=== PATIENT | male | born 1955 | race Caucasian/White ===

== ENCOUNTER 2022-02-08 09:34 | Inpatient (IN) | payer MEDICARE, OTHER ==
[~2022-02-08] VITALS: Ht 188 cm; Wt 99.8 kg
[~2022-02-08 09:34] MED LIST: ASPIRIN81 MG PO; FINASTERIDE5 MG PO; FISH OIL 1,0001 EAC2 PO; FLOMAX0.4 MG PO; SYNJARDY XR 251 EACH PO; VITAMIN D3 COM1 EACH PO
[2022-02-08] MEDS ORDERED: GENTAMICIN 80MG/NS 100 ML 200 ML IV ONE (10:21)
[2022-02-08] MEDS ORDERED: CEFTRIAXONE 1 GM VIAL ONE (10:21)
[2022-02-08] MEDS ORDERED: SODIUM CHLORIDE 0.9% 1000ML 1,000 ML ONE (10:21)
[2022-02-08] MEDS ORDERED: IOPAMIDOL 610MG/1ML 300 MG/ML VIAL IV ONE (11:42)
[2022-02-08] MEDS ORDERED: B&O 60MG R/S 60 MG SUPP PR ONE (11:42)
[2022-02-08] MEDS ORDERED: SEVOFLURANE INHAL SOLN 250 ML PEN BTL ONE (12:05)
[2022-02-08] MEDS ORDERED: LIDOCAINE HCL 2% LOCAL INJ 5 ML SDV VIAL INJ ONE (12:05)
[2022-02-08] MEDS ORDERED: PROPOFOL IV EMULSION 10 MG/ML 20 ML VIAL ONE (12:05)
[2022-02-08] MEDS ORDERED: POVIDONE IODINE 0.05% 0.05 % ML PO ONE (12:05)
[2022-02-08] MEDS ORDERED: DEXAMETHASONE SOD PHOS INJ 4 MG/ML SDV ONE (12:05)
[2022-02-08] MEDS ORDERED: ATROPINE SULFATE 1 MG/ML VIAL ONE (12:05)
[2022-02-08] MEDS ORDERED: ONDANSETRON HCL INJ 2MG/ML 2ML 2 MG/ML VIAL ONE (12:05)
[2022-02-08] MEDS ORDERED: MIDAZOLAM HCL 2 MG/2 ML VIAL ONE (12:47)
[2022-02-08] MEDS ORDERED: FENTANYL CITRATE/PF 100MCG/2 ML INJ ONE ×2 (12:47→13:28)
[2022-02-08] MEDS ORDERED: DIPHENHYDRAMINE HCL 25 MG CAP PO PRN (13:30)
[2022-02-08] MEDS ORDERED: ONDANSETRON HCL INJ 2MG/ML 2ML 2 MG/ML VIAL IV PRN (13:30)
[2022-02-08] MEDS ORDERED: B&O 60MG R/S 60 MG SUPP PR PRN (13:30)
[2022-02-08 13:43] LABS: BASOPHILS % 0.4 % (0.0-1.0); EOSINOPHILS % 0.6 % (0.0-6.0); HEMATOCRIT 47.8 % (38.2-49.6); HEMOGLOBIN 15.8 g/dL (14.0-18.0); LYMPHOCYTES % 14.3 % (18.0-39.1); MEAN CORPUSCULAR HGB CONC 33.1 g/dL (31-35); MEAN CORPUSCULAR VOLUME 90.9 fL (81-99); MONOCYTES # (AUTO) 0.3 (0.2-0.8); MONOCYTES % 4.9 % (4.4-11.3); NEUTROPHILS # (AUTO) 5.6 (2.1-6.9); NEUTROPHILS % 79.4 % (38.7-80.0); PLATELET COUNT 142 x10e3/uL (140-360); RED BLOOD COUNT 5.26 x10e6/uL (4.3-5.7); RED CELL DISTRIBUTION WIDTH 13.1 % (11.7-14.4)
[2022-02-08 13:59] LABS: ANION GAP 13.2 mmol/L (8-16); CALCIUM 8.3 mg/dL (8.4-10.2); CREATININE, SERUM 1.12 mg/dL (0.72-1.25); POTASSIUM 5.2 mmol/L (3.5-5.1)
[2022-02-08] MEDS ORDERED: Morphine 2mg Syringe 2 MG/ML SYR ONE (14:06)
[2022-02-08 16:02] VITALS: BP 134/77
[2022-02-08 16:03] VITALS: BP 134/77
[2022-02-08 16:06] VITALS: BP 134/77
[2022-02-08] MEDS: PHENAZOPYRIDINE HCL 100 MG TAB PO PRN (16:57)
[2022-02-08] MEDS: DOCUSATE SODIUM 100 MG CAP PO SCH (16:57)
[2022-02-08] MEDS: SODIUM CHLORIDE 0.9% 1000ML 1,000 ML IV SCH (16:57)
[2022-02-08 20:00] VITALS: BP 116/68
[2022-02-08] MEDS: ACETAMINOPHEN/CODEINE 300MG - 30MG TAB PO PRN (22:04)
[2022-02-08 22:42] VITALS: BP 116/68
[2022-02-09] VITALS (9 sets, daily range): BP systolic 111–143; BP diastolic 66–77
[2022-02-09] MEDS: SODIUM CHLORIDE 0.9% 1000ML 1,000 ML IV SCH ×3 (01:33→20:38)
[2022-02-09 04:58] LABS: BASOPHILS % 0.2 % (0.0-1.0); EOSINOPHILS % 0.2 % (0.0-6.0); HEMATOCRIT 43.6 % (38.2-49.6); HEMOGLOBIN 14.7 g/dL (14.0-18.0); LYMPHOCYTES # (AUTO) 1.7 (1.0-3.2); LYMPHOCYTES % 19.6 % (18.0-39.1); MEAN CORPUSCULAR HEMOGLOBIN 30.2 pg (28-32); MEAN CORPUSCULAR HGB CONC 33.7 g/dL (31-35); MEAN CORPUSCULAR VOLUME 89.7 fL (81-99); MONOCYTES % 11.6 % (4.4-11.3); NEUTROPHILS % 68.1 % (38.7-80.0); PLATELET COUNT 149 x10e3/uL (140-360); RED BLOOD COUNT 4.86 x10e6/uL (4.3-5.7)
[2022-02-09 05:16] LABS: ANION GAP 12.1 mmol/L (8-16); CALCIUM 8.3 mg/dL (8.4-10.2); CREATININE, SERUM 0.84 mg/dL (0.72-1.25); POTASSIUM 4.1 mmol/L (3.5-5.1)
[2022-02-09] MEDS ORDERED: DEXTROSE 50% SYRINGE 50 ML IV PRN (08:45)
[2022-02-09] MEDS: DOCUSATE SODIUM 100 MG CAP PO SCH ×2 (09:47→17:06)
[2022-02-09] MEDS: FINASTERIDE 5 MG TAB PO SCH (09:53)
[2022-02-09] MEDS: INSULIN LISPRO 100 UNIT/1 ML 3ML VIAL SQ SCH ×3 (11:30→20:38)
[2022-02-09] MEDS: ACETAMINOPHEN/CODEINE 300MG - 30MG TAB PO PRN ×3 (12:04→22:38)
[2022-02-09] MEDS ORDERED: TAMSULOSIN HCL 0.4 MG CAP PO SCH (17:00)
[2022-02-10 00:16] VITALS: BP 141/71
[2022-02-10] MEDS: ACETAMINOPHEN/CODEINE 300MG - 30MG TAB PO PRN ×2 (03:39→13:40)
[2022-02-10 04:00] VITALS: BP 146/78
[2022-02-10] MEDS: SODIUM CHLORIDE 0.9% 1000ML 1,000 ML IV SCH ×2 (04:46→07:10)
[2022-02-10 05:00] LABS: BASOPHILS % 0.6 % (0.0-1.0); EOSINOPHILS # (AUTO) 0.1 (0.0-0.4); EOSINOPHILS % 1.2 % (0.0-6.0); HEMATOCRIT 44.2 % (38.2-49.6); HEMOGLOBIN 14.7 g/dL (14.0-18.0); LYMPHOCYTES # (AUTO) 1.8 (1.0-3.2); LYMPHOCYTES % 25.8 % (18.0-39.1); MEAN CORPUSCULAR HEMOGLOBIN 30.1 pg (28-32); MEAN CORPUSCULAR HGB CONC 33.3 g/dL (31-35); MEAN CORPUSCULAR VOLUME 90.6 fL (81-99); MONOCYTES # (AUTO) 0.8 (0.2-0.8); MONOCYTES % 10.8 % (4.4-11.3); NEUTROPHILS # (AUTO) 4.3 (2.1-6.9); NEUTROPHILS % 61.5 % (38.7-80.0); PLATELET COUNT 144 x10e3/uL (140-360); RED BLOOD COUNT 4.88 x10e6/uL (4.3-5.7)
[2022-02-10 05:27] LABS: ANION GAP 13.9 mmol/L (8-16); CALCIUM 8.1 mg/dL (8.4-10.2); CREATININE, SERUM 0.85 mg/dL (0.72-1.25); POTASSIUM 3.9 mmol/L (3.5-5.1)
[2022-02-10] MEDS: INSULIN LISPRO 100 UNIT/1 ML 3ML VIAL SQ SCH ×2 (07:30→11:30)
[2022-02-10 08:00] VITALS: BP 141/79
[2022-02-10 08:01] VITALS: BP 141/79
[2022-02-10] MEDS: FINASTERIDE 5 MG TAB PO SCH (09:00)
[2022-02-10] MEDS: DOCUSATE SODIUM 100 MG CAP PO SCH (09:00)
[2022-02-10 11:08] VITALS: BP 156/79
[2022-02-10] MEDS ORDERED: ONDANSETRON HCL 4 MG ORAL DISINTEGRATING TAB PO PRN (12:45)
[2022-02-10] MEDS: PHENAZOPYRIDINE HCL 100 MG TAB PO PRN (13:40)
[2022-02-10 15:57] VITALS: BP 155/87
[2022-02-10] MEDS ORDERED: LEVOFLOXACIN250 MG PO (15:59)
[2022-02-10] MEDS ORDERED: ONDANSETRON ODT4 MG PO (16:00)
== END 2022-02-10 16:45 | disposition home or self-care (01) | DRG 713 ==
LOC: OR 09:34 → PACU V 13:18 → MED/SURG 16:16
PROVIDERS: ADMIT Internal Medicine; ATTEND Internal Medicine
PROC: BT141ZZ Fluoroscopy of Kidneys, Ureters and Bladder using Low Osmolar Contrast (ICD-10-PCS; 2022-02-08)
PROC: 0TCB8ZZ Extirpation of Matter from Bladder, Via Natural or Artificial Opening Endoscopic (ICD-10-PCS; 2022-02-08)
PROC: 0T788ZZ Dilation of Bilateral Ureters, Via Natural or Artificial Opening Endoscopic (ICD-10-PCS; principal; 2022-02-08 11:39)
PROC: 0VB08ZZ Excision of Prostate, Via Natural or Artificial Opening Endoscopic (ICD-10-PCS; 2022-02-08 11:39)
DX: N40.1 Benign prostatic hyperplasia with lower urinary tract symptoms (principal); N13.8 Other obstructive and reflux uropathy; R33.8 Other retention of urine; E11.9 Type 2 diabetes mellitus without complications; M19.90 Unspecified osteoarthritis, unspecified site; I10 Essential (primary) hypertension; R39.14 Feeling of incomplete bladder emptying; N21.0 Calculus in bladder; Z85.828 Personal history of other malignant neoplasm of skin; N41.1 Chronic prostatitis; R31.0 Gross hematuria
CPT/HCPCS: 36415; 71046; 74420; 80048; 82948; 83735; 85025; 88300; 88305; 93005; 94799; C1758; J0461; J0696; J1100; J1580; J2001; J2250; J2270; J2405; J3010; J7030; U0002